=== PATIENT | male | born 1985 | race Caucasian/White ===

== ENCOUNTER 2016-08-15 16:52 | Emergency (ER) | payer OTHER ==
[2016-08-15 17:18] VITALS: TEMP 98.1; BMI 27.5
--- NOTE | 2016-08-15 18:00 | PDOC ---
History of Present Illness - General History Source: Patient Exam Limitations: No Limitations - History of Present Illness Initial Comments: 08/15/16 17:55 Patient is a 31 year old male with significant PMH of seizure disorder (on Keppra) who presents to ED with right lower extremity "tingling sensation" & weakness. He states for the last 3-4 weeks he has had right knee pain, exacerbated by weight-bearing. He states the pain was associated with tingling sensation below the knee to his toes. Over the last 3 days, patient states the "tingling and numbness" is now present in his entire right lower extremity. The sensation is associated with shooting pain once more. He also reports very mild diffuse abdominal pain starting this morning. Otherwise, only other complaints is mild constipation and dry mouth. Denies fever, chills, vomiting, diarrhea, constipation, headache, shortness of breath, chest pain or URI symptoms. <Sukh Granado - Last Filed: 08/15/16 18:50> <Rosa Burkett - Last Filed: 08/15/16 19:41> - General Chief Complaint: Pain, Acute Stated Complaint: RT LEG PAIN/ABD PAIN Time Seen by Provider: 08/15/16 17:28 Past History - Travel Traveled outside of the country in the last 30 days: Yes If so, where?: [place], returned last weekend Close contact w/someone who was outside of country & ill: No - Past Medical History Seizures: Yes (HISTORY OF EPILEPSY) Other medical history: "pinched nerve" & PT for lower back issues - Family Disease History Family Disease History: Heart Disease: Father (HTN) - Psycho/Social/Smoking Cessation Hx Anxiety: Yes Suicidal Ideation: No Smoking Status: No Smoking History: Never smoked Have you smoked in the past 12 months: No Number of Cigarettes Smoked Daily: 0 Hx Alcohol Use: No Drug/Substance Use Hx: No Substance Use Type: None <Sukh Granado - Last Filed: 08/15/16 18:50> <Rosa Burkett - Last Filed: 08/15/16 19:41> - Past Medical History Allergies/Adverse Reactions: Allergies Allergy/AdvReac Type Severity Reaction Status Date / Time No Known Allergies Allergy Verified 08/15/16 17:14 Home Medications: Ambulatory Orders Levetiracetam [Keppra -] 1,000 mg PO BID 04/03/12 Review of Systems - Review of Systems Able to Perform ROS?: Yes Is the patient limited [place]ian proficient: No Constitutional: No: Chills, Diaphoresis, Fever HEENTM: No: Blurred Vision, Double Vision, Tinnitus, Throat Swelling Respiratory: No: Cough, Shortness of Breath, Wheezing, Productive cough Cardiac (ROS): No: Chest Pain, Edema, Irregular Heart Rate, Lightheadedness ABD/GI: Yes: Constipated, Abdominal cramping. No: Diarrhea, Nausea, Vomiting Musculoskeletal: Yes: Muscle Pain, Muscle Weakness Integumentary: No: Bruising, Change in Color, Erythema Neurological: Yes: Paresthesia, Tingling, Weakness. No: Headache, Numbness Psychiatric: No: Anxiety, Depression All Other Systems: Reviewed and Negative <Sukh Granado - Last Filed: 08/15/16 18:50> *Physical Exam - Vital Signs Last Vital Signs Temp Pulse Resp BP Pulse Ox 98.1 F 69 16 145/91 98 08/15/16 17:14 08/15/16 17:14 08/15/16 17:14 08/15/16 17:14 08/15/16 17:14 - Physical Exam General Appearance: Yes: Nourished, Appropriately Dressed HEENT: positive: EOMI, CRISELDA, Normal ENT Inspection, Pharynx Normal Neck: positive: Trachea midline, Normal Thyroid, Supple Respiratory/Chest: positive: Lungs Clear, Normal Breath Sounds Cardiovascular: positive: Regular Rhythm, Regular Rate, S1, S2 Gastrointestinal/Abdominal: positive: Normal Bowel Sounds, Flat, Soft Musculoskeletal: positive: Other (Diminished strength right lower extremity, diminished sensation rght lower extremity; strength & sensory intact & equal bilateral upper extremity) Extremity: positive: Normal Inspection, Normal Range of Motion Integumentary: positive: Normal Color, Dry, Warm Neurologic: positive: credit cashier II-XII NML intact, Fully Oriented, Alert, Normal Mood/ Affect, Other (Normal rectal tone, Negative Saddle paresthesia) <Sukh Granado - Last Filed: 08/15/16 18:50> - Vital Signs Last Vital Signs Temp Pulse Resp BP Pulse Ox 98.1 F 52 L 18 122/78 98 08/15/16 19:13 08/15/16 19:13 08/15/16 19:13 08/15/16 19:13 08/15/16 19:13 <Rosa Burkett - Last Filed: 08/15/16 19:41> ED Treatment Course - LABORATORY CBC & Chemistry Diagram: 08/15/16 18:15 08/15/16 18:15 <Sukh Granado - Last Filed: 08/15/16 18:50> - LABORATORY CBC & Chemistry Diagram: 08/15/16 18:15 08/15/16 18:15 - ADDITIONAL ORDERS Additional order review: Laboratory Results 08/15/16 08/15/16 18:15 18:15 Sodium 141 Potassium 4.1 Chloride 103 Carbon Dioxide 28 Anion Gap 10 BUN 13 Creatinine 0.8 Creat Clearance w eGFR > 60 Random Glucose 101 Calcium 9.1 Total Bilirubin 0.3 D AST 15 ALT 19 Alkaline Phosphatase 104 D Total Protein 7.5 Albumin 4.4 Urine Color Yellow Urine Appearance Clear Urine pH 5.0 Ur Specific [place] 1.026 Urine Protein Negative Urine Glucose (UA) Negative Urine Ketones Negative Urine Blood Negative Urine Nitrite Negative Urine Bilirubin Negative Urine Urobilinogen Negative Ur Leukocyte Esterase Negative 08/15/16 18:15 RBC 5.22 MCV 92.4 MCHC 33.7 RDW 12.7 MPV 8.1 D Neutrophils % 44.7 D Lymphocytes % 44.6 H D Monocytes % 6.3 D Eosinophils % 3.1 D Basophils % 1.3 <Rosa Burkett - Last Filed: 08/15/16 19:41> Medical Decision Making - Medical Decision Making 08/15/16 18:04 Abdominal pain very mild & likely not related to acute abdominal pathology. Will order CBC, CMP, UA. Patient has lower back pain, history of pinched nerve so will likely require neurology workup & MRI as an outpatient. <Sukh Granado - Last Filed: 08/15/16 18:50> - Medical Decision Making 08/15/16 19:32 I reviewed all labs w patient\\ -they are all normal plan he already has an appt tomorrow with an orthopedist at [facility] for his back pain <Rosa Burkett - Last Filed: 08/15/16 19:41> *DC/Admit/Observation/Transfer <Sukh Granado - Last Filed: 08/15/16 18:50> <Rosa Burkett - Last Filed: 08/15/16 19:41> Diagnosis at time of Disposition: Right leg numbness Pain of lower extremity Qualifiers: Laterality: right Qualified Code(s): M79.604 - Pain in right leg Back pain Qualifiers: Back pain location: low back pain Chronicity: unspecified Back pain laterality : unspecified Sciatica presence: with sciatica Sciatica laterality: sciatica of right side Qualified Code(s): M54.41 - Lumbago with sciatica, right side - Discharge Dispostion Disposition: HOME Condition at time of disposition: Stable - Referrals Referrals: Bert Bailey MD [Staff Physician] - - Patient Instructions Additional Instructions: Keep your appointment with the orthopedist at [facility] tomorrow You may need an MRI. If pain worsens or spreads further up body, return to ER immediately.
[2016-08-15 18:31] LABS: BASOPHIL 1.3 % (0-2.0); EOSINOPHIL 3.1 % (0-4.5); MCH 31.1 pg (25.7-33.7); MCHC 33.7 g/dl (32.0-35.9); MEAN CELL VOLUME 92.4 fl (80-96); MEAN PLT VOLUME 8.1 fl (7.5-11.1); NEUTROPHILS 44.7 % (42.8-82.8); PLATELET COUNT 248 K/MM3 (134-434); RDW 12.7 % (11.9-15.9); WHITE BLOOD COUNT 6.6 K/mm3 (4.0-10.0)
[2016-08-15 18:43] LABS: URINE APPEARANCE CLEAR; URINE BILIRUBIN NEGATIVE (NEGATIVE); URINE BLOOD NEGATIVE (NEGATIVE); URINE COLOR YELLOW; URINE GLUCOSE (UA) NEGATIVE (NEGATIVE); URINE KETONE NEGATIVE (NEGATIVE); URINE LEUK ESTERASE NEGATIVE (NEGATIVE); URINE NITRITE NEGATIVE (NEGATIVE); URINE PROTEIN NEGATIVE (NEGATIVE); URINE UROBILINOGEN NEGATIVE E.U./dl (0.2-1.0)
[2016-08-15 18:57] LABS: ALBUMIN 4.4 g/dl (3.4-5.0); ANION GAP 10 (8-16); CALCIUM 9.1 mg/dL (8.5-10.1); CO2 28 mmol/L (21-32); GLUCOSE,RANDOM 101 mg/dL (74-106)
[2016-08-15 19:02] LABS: ALK PHOS 104 U/L (45-117); BILIRUBIN,TOTAL 0.3 mg/dL (0.2-1.0); CREATININE 0.8 mg/dL (0.7-1.3); SGOT/AST 15 U/L (15-37); SGPT/ALT 19 U/L (12-78); TOT PROT 7.5 g/dl (6.4-8.2)
[2016-08-15 19:14] VITALS: BP 122/78; PULSE 52
--- NOTE | 2016-08-15 19:35 | PDOC ---
Attending Attestation - Resident Resident Name: Sukh Granado - HPI HPI: 08/15/16 19:34 slender well developed,well nourished 31 yo male abd benign exam normal rectal tone no saddle anesthesia cvs [id number] lugs cta b/l no ataxia 08/17/16 02:20 this 31 yo male had complete of leg pain. denies trauma -mild weakness/no clonus -pt does not have saddle anesthesia - Physicial Exam PE: 08/17/16 02:18 wnwd 31 yo male in no distress lungs cta b/l cvr [id number] abd soft nontender ext symetrical,dtr+2 neuro axox3,ambulatory 08/17/16 02:19 - Medical Decision Making 08/15/16 19:35 31 yo male w back pain and some rt leg weakness ,normal rectal tone IMP radiculopathy plan tomorrow sees his orthopedist 08/15/16 19:39 08/17/16 02:19
== END 2016-08-15 19:47 | disposition home or self-care (01) ==
LOC: JER 16:52
DX: M54.41 Lumbago with sciatica, right side (principal); G40.909 Epilepsy, unspecified, not intractable, without status epilepticus
CPT/HCPCS: 36415; 80053; 81003; 85025; 99283-25

== ENCOUNTER 2019-06-19 00:18 | Emergency (ER) | payer OTHER ==
--- NOTE | 2019-06-19 01:01 | PDOC ---
*Physical Exam - Vital Signs Last Vital Signs Temp Pulse Resp BP Pulse Ox 98.5 F 75 16 123/72 99 06/19/19 00:56 06/19/19 00:56 06/19/19 00:56 06/19/19 00:56 06/19/19 00:56 Medical Decision Making - Medical Decision Making 06/19/19 01:01 Patient seen by the advanced practice provider under my direct supervision. Ancillary testing reviewed as necessary. I agree with plan as outlined by the advanced practice provider. Discharge - Discharge Information Problems reviewed: Yes Clinical Impression/Diagnosis: Left leg pain Condition: Stable Disposition: HOME - Follow up/Referral Referrals: Cindy Chávez MD [Primary Care Provider] - Call tomorrow - Patient Discharge Instructions Patient Printed Discharge Instructions: DI for Leg Pain Additional Instructions: please wear compression stocking as tolerated. you may take Tylenol for pain follow up with your doctor as soon as possible. return to the ER for any worsening symptoms - Post Discharge Activity Work/Back to School Note: Back to Work
--- NOTE | 2019-06-19 01:03 | PDOC ---
History of Present Illness - General Chief Complaint: Pain, Acute Stated Complaint: LIGHT HEADED, RIGHT LEG PAIN Time Seen by Provider: 06/19/19 00:56 History Source: Patient - History of Present Illness Initial Comments: 06/19/19 01:04 34 year old male c/o right calf pain for the last 3 days now with increasing pain to the right calf. denies shortness of breath fever/ chills. 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 Past History - Past Medical History Allergies/Adverse Reactions: Allergies Allergy/AdvReac Type Severity Reaction Status Date / Time No Known Allergies Allergy Verified 06/19/19 00:56 Home Medications: Ambulatory Orders levETIRAcetam [Keppra -] 1,000 mg PO BID 04/03/12 Methocarbamol [Robaxin -] 1,500 mg PO Q8H #30 tablet 01/22/18 COPD: No Seizures: Yes (HISTORY OF EPILEPSY) - Psycho Social/Smoking Cessation Hx Smoking Status: No Smoking History: Never smoked Have you smoked in the past 12 months: No Number of Cigarettes Smoked Daily: 0 Hx Alcohol Use: No Drug/Substance Use Hx: No Substance Use Type: None Review of Systems - Review of Systems Able to Perform ROS?: Yes Is the patient limited [place] proficient: No Musculoskeletal: Yes: Other (right calf pain) *Physical Exam - Vital Signs Last Vital Signs Temp Pulse Resp BP Pulse Ox 98.5 F 75 16 123/72 99 06/19/19 00:56 06/19/19 00:56 06/19/19 00:56 06/19/19 00:56 06/19/19 00:56 - Physical Exam General Appearance: Yes: Appropriately Dressed Respiratory/Chest: positive: Lungs Clear, Normal Breath Sounds Cardiovascular: positive: Regular Rhythm, Regular Rate Gastrointestinal/Abdominal: positive: Normal Bowel Sounds, Soft. negative: Tender Extremity: positive: Other (b/l equal pedal pulse) Integumentary: positive: Normal Color, Dry, Warm Neurologic: positive: Fully Oriented, Alert, Normal Mood/Affect Medical Decision Making - Medical Decision Making A: calf pain P: r/o DVT 06/19/19 02:00 US: No evidence of DVT in the examined venous structures of the right lower extremity. Discharge - Discharge Information Problems reviewed: Yes Clinical Impression/Diagnosis: Left leg pain Condition: Stable Disposition: HOME - Follow up/Referral Referrals: Cindy Chávez MD [Primary Care Provider] - Call tomorrow - Patient Discharge Instructions Patient Printed Discharge Instructions: DI for Leg Pain Additional Instructions: please wear compression stocking as tolerated. you may take Tylenol for pain follow up with your doctor as soon as possible. return to the ER for any worsening symptoms - Post Discharge Activity Work/Back to School Note: Back to Work
[2019-06-19 01:14] VITALS: BP 123/72; PULSE 75; TEMP 98.5; BMI 28.1
== END 2019-06-19 02:29 | disposition home or self-care (01) ==
LOC: JER 00:18
DX: M79.605 Pain in left leg (principal)
CPT/HCPCS: 93971-TC; 99281-25

== ENCOUNTER 2019-07-14 11:24 | Emergency (ER) | payer OTHER ==
[2019-07-14 11:36] VITALS: BP 126/90; PULSE 81; TEMP 97.9; BMI 28.1
[2019-07-14] MEDS ORDERED: predniSONE 20 MG TABLET (UD) PO ONE (12:02)
[2019-07-14] MEDS ORDERED: levETIRAcetam 500 MG TABLET (FP) PO ONE ×2 (12:03→12:13)
[2019-07-14] MEDS ORDERED: CYCLOBENZAPRINE HCL 5 MG TABLET PO ONE (12:03)
[2019-07-14] MEDS ORDERED: CYCLOBENZAPRINE HCL 10 MG TABLET (FP) ONE (12:09)
[2019-07-14] MEDS ORDERED: predniSONE 20 MG TABLET (UD) ONE (12:10)
--- NOTE | 2019-07-14 12:13 | PDOC ---
History of Present Illness - General Chief Complaint: Pain Stated Complaint: BACK PAIN Time Seen by Provider: 07/14/19 11:48 History Source: Patient Exam Limitations: No Limitations - History of Present Illness Initial Comments: 07/14/19 12:07 Patient is a 34-year-old male who presents to the ED with complaint of right- sided low back pain that started suddenly when he was getting ready this morning. He states the pain does not radiate down his bilateral lower extremities. He denies any urinary or fecal incontinence or retention. He denies any exacerbating factors. He was not lifting anything or moving awkwardly. He states he is having a lot of trouble getting comfortable. He denies any blood in his urine. The patient states he has never had anything like this before. He has a history of seizures and states he forgot to take his Keppra this morning because the pain started. Past History - Past Medical History Allergies/Adverse Reactions: Allergies Allergy/AdvReac Type Severity Reaction Status Date / Time No Known Allergies Allergy Verified 07/14/19 11:36 Home Medications: Ambulatory Orders levETIRAcetam [Keppra -] 1,000 mg PO BID 04/03/12 Methocarbamol [Robaxin -] 1,500 mg PO Q8H #30 tablet 01/22/18 Cyclobenzaprine HCl [Flexeril 10 mg] 10 mg PO TID PRN #30 tablet 07/14/19 Prednisone [Prednisone 50 MG TABLETS] 50 mg PO DAILY 4 Days #4 tablet 07/14/19 COPD: No Seizures: Yes (HISTORY OF EPILEPSY) - Psycho Social/Smoking Cessation Hx Smoking Status: No Smoking History: Never smoked Have you smoked in the past 12 months: No Number of Cigarettes Smoked Daily: 0 Hx Alcohol Use: No Drug/Substance Use Hx: No Substance Use Type: None Review of Systems - Review of Systems Comments:: 07/14/19 12:08 - Review of Systems Able to Perform ROS?: Yes Constitutional: No: Fever, Chills, Loss of Appetite, Night Sweats, Weakness HEENTM: No: Eye Pain, Vision changes, Ear Pain, Throat Pain, Throat Swelling, Mouth Pain, Difficulty Swallowing Respiratory: No: Cough, Shortness of Breath, Wheezing, Sputum Production Cardiac (ROS): No: Chest Pain, Chest Tightness, Palpitations, Irregular Heart Beat, Edema ABD/GI: No: Nausea, Vomiting, Abdominal Pain, Diarrhea : No Dysuria, No Hematuria, No Frequency, No Urgency, No Vaginal Discharge/ Pain, No Penile Discharge/Pain Musculoskeletal: No: Joint Pain, Muscle Weakness, Neck Pain; + low back pain Integumentary: No: Lesions, Rash Neurological: No: Headache, Numbness, Tingling, Weakness, Speech Difficulties *Physical Exam - Vital Signs Last Vital Signs Temp Pulse Resp BP Pulse Ox 97.9 F 81 18 126/90 97 07/14/19 11:32 07/14/19 11:32 07/14/19 11:32 07/14/19 11:32 07/14/19 11:32 - Physical Exam 07/14/19 12:09 - Physical Exam General Appearance: Nourished, Appropriately Dressed, Moderate distress secondary to pain Neck: Supple, No Lymphadenopathy (R), No Lymphadenopathy (L), No Rigidity, No Decreased range of motion Respiratory/Chest: Lungs Clear, Normal Breath Sounds. No Respiratory Distress, No Accessory Muscle Use Cardiovascular: Regular Rhythm, Regular Rate, S1, S2 Musculoskeletal: Normal Inspection. Decreased ROM secondary to pain. + right lumbar paraspinal tenderness to palpation, strength 5/5 b/l LE, sensation equal b/l to light touch. + left sided straight leg raise, negative right sided straight leg raise. Pt unable to walk secondary to pain. Extremity: Normal Capillary Refill, Normal Inspection Integumentary: Normal Color, Dry. No Rash Neurologic: back end architect II-XII NML intact, Fully Oriented, Alert, Normal Mood/Affect, Normal Response 07/14/19 12:11 ED Treatment Course - RADIOLOGY Radiology Studies Ordered: Category Date Time Status SPINE-LUMBAR ONLY [RAD] Stat Radiology 07/14/19 12:04 Ordered Radiograph Interpretation: 07/14/19 12:34 The patient has straightening of the normal lumbar lordosis. There is maintained disc height throughout and no evidence of any spondylolisthesis appreciated. There is no significant spondylosis appreciated. Medical Decision Making - Medical Decision Making 07/14/19 13:44 Patient's pain is better controlled at this time. His x-ray is negative for acute pathology. We will discharge the patient with a prescription for prednisone and Flexeril. He has been encouraged to follow-up with orthopedics or his primary doctor for reevaluation. The prescriptions were sent to his pharmacy. The patient understands and agrees with treatment plan. Discharge - Discharge Information Problems reviewed: Yes Clinical Impression/Diagnosis: Back pain Qualifiers: Back pain location: low back pain Chronicity: acute Back pain laterality: right Sciatica presence: without sciatica Qualified Code(s): M54.5 - Low back pain Condition: Stable Disposition: HOME - Additional Discharge Information Prescriptions: Cyclobenzaprine HCl [Flexeril 10 mg] 10 mg PO TID PRN #30 tablet PRN Reason: Muscle Spasms Prednisone [Prednisone 50 MG TABLETS] 50 mg PO DAILY 4 Days #4 tablet - Follow up/Referral Referrals: Cindy Chávez MD [Primary Care Provider] - - Patient Discharge Instructions Patient Printed Discharge Instructions: Low Back Pain Additional Instructions: Get plenty of rest and avoid any strenuous activity. Start the prednisone tomorrow as you were given your first dose today. You can take the Flexeril as needed up to 3 times daily. Avoid any heavy lifting. You should follow-up with your primary doctor within 1 to 2 days and possibly orthopedics for further evaluation if your symptoms persist. Return for any worsening symptoms such as severe back pain, loss of bowel or bladder control, pain radiating down your legs, numbness or tingling or any other worsening symptoms. - Post Discharge Activity
[2019-07-14] MEDS ORDERED: KETOROLAC TROMETHAMINE 30 MG/1 ML VIAL IM ONE (12:56)
[2019-07-14] MEDS ORDERED: KETOROLAC TROMETHAMINE 30 MG/1 ML VIAL ONE (13:03)
== END 2019-07-14 13:52 | disposition home or self-care (01) ==
LOC: JERFT 11:24
PROC: 3E0233Z Introduction of Anti-inflammatory into Muscle, Percutaneous Approach (ICD-10-PCS; principal; 2019-07-14)
DX: M54.5 Low back pain (principal); G40.909 Epilepsy, unspecified, not intractable, without status epilepticus
CPT/HCPCS: 72100-TC-FY; 96372; 99282-25

== ENCOUNTER 2020-11-14 00:55 | Emergency (ER) | payer OTHER ==
[2020-11-14 01:10] VITALS: BP 134/79; PULSE 60; TEMP 98.5; BMI 29.0
[2020-11-14 02:26] LABS: BASO % 0.9 % (0-2.0); EOS % 3.9 % (0-4.5); HEMATOCRIT 42.6 % (35.4-49); HEMOGLOBIN 14.8 GM/dL (11.7-16.9); LYMPH % 42.6 % (8-40); MCHC 34.8 g/dl (32.0-35.9); MEAN CELL VOLUME 91.9 fl (80-96); MEAN PLT VOLUME 7.7 fl (7.5-11.1); MONO % 8.1 % (3.8-10.2); NEUT % 44.5 % (42.8-82.8); PLATELET COUNT 243 K/MM3 (134-434); RBC 4.63 M/mm3 (4.00-5.60); RDW 12.4 % (11.9-15.9); WHITE BLOOD COUNT 6.4 K/mm3 (4.0-10.0)
[2020-11-14 02:39] LABS: CHLORIDE 107 mmol/L (98-107); SODIUM 140 mmol/L (136-145)
[2020-11-14 02:41] LABS: ALBUMIN 4.1 g/dl (3.4-5.0); ANION GAP 4 MMOL/L (8-16); CALCIUM 8.5 mg/dL (8.5-10.1); CO2 29 mmol/L (21-32); GLUCOSE,RANDOM 93 mg/dL (74-106)
[2020-11-14 02:42] LABS: BLOOD UREA NITROGEN 17.8 mg/dL (7-18)
[2020-11-14 02:45] LABS: CREATININE 0.9 mg/dL (0.55-1.3); SGOT/AST 21 U/L (15-37); SGPT/ALT 37 U/L (13-61)
[2020-11-14 02:46] LABS: BILIRUBIN,TOTAL 0.3 mg/dL (0.2-1); TOT PROT 6.8 g/dl (6.4-8.2)
[2020-11-14 02:47] LABS: ALK PHOS 100 U/L (45-117)
== END 2020-11-14 03:13 | disposition home or self-care (01) ==
LOC: JER 00:55
DX: S56.8 Injury of other muscles, fascia and tendons at forearm level (principal)
CPT/HCPCS: 36415; 71046-TC-FY; 80053; 82550; 84484; 85025; 85379; 93005; 93010; 99285-25